=== PATIENT | female | born 1935 | race Caucasian/White ===

== ENCOUNTER 2023-06-10 12:10 | Emergency (ER) | payer MEDICARE, OTHER ==
[~2023-06-10] VITALS: Ht 157.5 cm; Wt 52.8 kg
[2023-06-10] MEDS ORDERED: MECLIZINE HCL25 MG PO (12:35)
[2023-06-10] MEDS ORDERED: SODIUM CHLORIDE 0.9% 1,000 ML IV ONE (12:45)
[2023-06-10 13:36] LABS: BASOPHILS 0.2 % (0-2); EOSINOPHILS 0.2 % (0-6); HEMATOCRIT 38.8 % (35.0-50.0); LYMPHOCYTES 23.1 % (24-44); MCH 32.2 (27-36); MCHC 33.6 g/dl (30-36); MCV 95.9 fl (81-99); MONOCYTES 13.8 % (0-12); NEUTROPHILS 62.7 % (39-80); PLATELET COUNT 129 K/uL (140-440); RBC 4.05 M/ul (4.3-5.7); RDW 13.1 (10.5-15.0)
[2023-06-10 13:51] LABS: ALBUMIN 2.9 g/dL (3.4-5.0); ALBUMIN/GLOBULIN RATIO 0.81 (1.1-2.4); ANION GAP 9.7 (7-21); BILIRUBIN, TOTAL 0.8 ng/dL (0.2-1.0); BUN/CREATININE RATIO 14.67 (6.0-28.6); CALCIUM 8.9 mg/dL (8.5-10.1); CREATININE, SERUM 1.09 mg/dL (0.55-1.02); POTASSIUM 3.7 mmol/L (3.5-5.1); PROTEIN, TOTAL 6.5 g/dL (6.4-8.2)
[2023-06-10 14:04] LABS: BILIRUBIN, URINE NEGATIVE (negative); BLOOD/HGB, URINE NEGATIVE (Negative); KETONE, URINE NEGATIVE (Negative); LEUK ESTERASE, URINE SMALL (negative); NITRITE, URINE NEGATIVE (negative)
[2023-06-10 14:10] LABS: BACTERIA, URINE NONE SEEN /hpf (negative); CASTS, URINE HYALINE 2+ \\lpf; CRYSTALS, URINE NONE SEEN (0-1+); EPITHELIAL CELLS, URINE SQUAMOUS 2+ /lpf (0-1+); RED BLOOD CELLS, URINE 0-1 /hpf (0-5)
[2023-06-10 14:11] LABS: COLLECTION TYPE, URINE CLEAN CATCH; REFLEX CULTURE, URINE No (No)
--- NOTE | 2023-06-10 14:14 | EKG ---
[facility] [address] [place] [address] Signed Atrial fibrillation with slow ventricular response Left anterior fascicular block Moderate voltage criteria for LVH, may be normal variant ( R in aVL , [place] product ) Cannot rule out Inferior infarct (masked by fascicular block?) , age undetermined Anteroseptal infarct , age undetermined Abnormal ECG No previous ECGs available Confirmed by ELIZABET DORADO MD ([id number]) on 06/10/2023 2:14:05 PM Electronically Signed By: ELIZABET DORADO 06/10/23 1414 PATIENT NAME: SUSAN BRINK Electrocardiogram DATE OF : [birth year] PHYSICIAN: ELIZABET DORADO REPORT #: [id number] REPORT IS CONFIDENTIAL AND NOT TO BE RELEASED WITHOUT AUTHORIZATION
[2023-06-10] MEDS ORDERED: HEParin SOD (PORCINE) 5,000 UNIT/ML VIAL IV ONE (15:45)
[2023-06-10] MEDS ORDERED: HEPARIN SOD,PORK IN 0.45% NACL 500 ML IV SCH (15:45)
[2023-06-10] MEDS ORDERED: ASPIRIN 81 MG CHEW PO ONE (15:45)
[2023-06-10 16:35] VITALS: BP 130/79
--- NOTE | 2023-06-11 10:43 | EKG ---
[facility] [address] [place] [address] Signed Marked sinus bradycardia with 1st degree AV block with premature atrial complexes Left anterior fascicular block Minimal voltage criteria for LVH, may be normal variant ( [place] product ) Cannot rule out Inferior infarct (cited on or before 10-JUN-2023) Anteroseptal infarct (cited on or before 10-JUN-2023) Abnormal ECG When compared with ECG of 10-JUN-2023 12:30, Sinus rhythm has replaced Atrial fibrillation Confirmed by ELIZABET DORADO MD ([id number]) on 06/11/2023 10:43:19 AM Electronically Signed By: ELIZABET DORADO 06/11/23 1043 PATIENT NAME: CUBASUSAN SAUNDERS Electrocardiogram DATE OF : [birth year] PHYSICIAN: ELIZABET DORADO REPORT #: [id number] REPORT IS CONFIDENTIAL AND NOT TO BE RELEASED WITHOUT AUTHORIZATION
== END 2023-06-10 16:35 | disposition short-term general hospital (02) ==
LOC: ED 12:10
PROVIDERS: Emergency Medicine
DX: I63.9 Cerebral infarction, unspecified (principal); I21.4 Non-ST elevation (NSTEMI) myocardial infarction; S05.12XA Contusion of eyeball and orbital tissues, left eye, initial encounter; S40.022A Contusion of left upper arm, initial encounter; Z88.0 Allergy status to penicillin; Z88.2 Allergy status to sulfonamides; Z88.5 Allergy status to narcotic agent; Z88.6 Allergy status to analgesic agent; Z79.899 Other long term (current) drug therapy; W18.39XA Other fall on same level, initial encounter; Y92.002 Bathroom of unspecified non-institutional (private) residence as the place of occurrence of the external cause
CPT/HCPCS: 36415; 70450; 80053; 81001; 84484; 85025; 93005; 93010; 96361; 96374; 96375; 99285-25; A9270; J1644; J7030